=== PATIENT | female | born 1990 | race Caucasian/White ===

== ENCOUNTER 2017-10-16 17:13 | Emergency (ER) | payer OTHER ==
[2017-10-16] MEDS: SOD CHLORIDE 0.9% 1,000 ML IV (17:52)
[2017-10-16 18:41] LABS: ADD MAN DIFF? NO
[2017-10-16 18:43] LABS: BASOPHIL # 0.1 10^3/ul (0.0-0.1); BASOPHILS % 0.9 % (0.0-2.0); EOSINOPHILS # 0.2 10^3/ul (0.0-0.5); EOSINOPHILS % 1.5 % (0.0-7.0); HEMATOCRIT 41.3 % (37.0-47.0); HEMOGLOBIN 13.7 g/dl (12.0-16.0); LYMPHOCYTES # 2.8 10^3/ul (0.8-2.9); LYMPHOCYTES % 25.2 % (15.0-51.0); MEAN CORPUSCULAR HEMOGLOBIN 28.5 pg (29.0-33.0); MEAN CORPUSCULAR HGB CONC 33.2 g/dl (32.0-37.0); MEAN CORPUSCULAR VOLUME 85.9 fl (82.0-101.0); MEAN PLATELET VOLUME 9.2 fl (7.4-10.4); MONOCYTES % 8.7 % (0.0-11.0); NEUTROPHIL # 7.1 10^3/ul (1.6-7.5); NEUTROPHILS % 63.3 % (39.0-77.0); PLATELET COUNT 431 10^3/UL (140-415); RED BLOOD COUNT 4.81 10^6/ul (4.20-5.40)
[2017-10-16 18:43] LABS: WHITE BLOOD COUNT 11.3 10^3/ul (4.8-10.8)
== END 2017-10-16 21:08 | disposition home or self-care (01) ==
LOC: E/R 17:13
DX: F41.9 Anxiety disorder, unspecified (principal)
CPT/HCPCS: 81025; 82962; 85025; 93005; 99284-25